=== PATIENT | male | born 1985 | race African-American/Black ===

== ENCOUNTER 2016-09-24 22:21 | Observation (INO) | payer SELFPAY ==
[~2016-09-24] VITALS: Ht 185.4 cm; Wt 67.3 kg
[2016-09-24 22:51] LABS: HEMOGLOBIN 13.6 g/dl (14.0-18.0); IMMATURE GRANULOCYTES 0.9 % (0.0-1.0); MEAN CELL VOLUME 90.7 fL CALC (80.0-100.0); MEAN CORPUSCULAR HGB 30.8 pG CALC (26.0-32.0); NEUT# 6.68 thou/uL (1.82-7.42); RED BLOOD COUNT 4.41 mill/uL (4.70-6.10)
[2016-09-24 22:55] LABS: URINE BLOOD DIPSTICK SMALL (NEGATIVE); URINE CLARITY CLEAR; URINE COLOR YELLOW; URINE GLUCOSE - DIPSTICK NEGATIVE (NEGATIVE); URINE KETONE NEGATIVE (NEGATIVE); URINE LEUK ESTERASE NEGATIVE (NEGATIVE); URINE NITRITE - DIPSTICK NEGATIVE (Negative); URINE PROTEIN - DIPSTICK 100 mg/dL (NEG-TRACE); URINE SPECIFIC GRAVITY >=1.030
[2016-09-24 22:57] LABS: URINE BILIRUBIN - DIPSTICK NEGATIVE (NEGATIVE)
[2016-09-24 22:58] LABS: BARBITURATES NEGATIVE (NEGATIVE); COCAINE NEGATIVE (NEGATIVE); METHADONE NEGATIVE (NEGATIVE); OXCYCODONE NEGATIVE (NEGATIVE); TETRAHYDROCANNABIONOL POSITIVE (NEGATIVE); TRICYLIC ANTIDEPRESSANTS NEGATIVE (NEGATIVE)
[2016-09-24 23:10] LABS: ALBUMIN 4.1 g/dL (3.2-5.0); ALKALINE PHOSPHATASE 57 u/l (38-126); ANION GAP 15 (6-22 (CALC)); BILIRUBIN, TOTAL 0.5 mg/dL (0.0-1.4); BUN 14 mg/dL (9-20); BUN/CREATININE RATIO 13 (12-20 (CALC)); CALCIUM 9.9 mg/dL (8.4-10.2); CARBON DIOXIDE 28 mmol/l (22-30); CHLORIDE 105 mmol/l (95-108); CREATININE 1.1 mg/dL (0.7-1.3); GFR > 60 ML/MIN (>=60 (CALC)); GFR FOR AFR.AMER. > 60 ML/MIN (>=60 (CALC)); GLUCOSE 106 mg/dL (75-110); SGOT/AST 34 u/l (17-59); SGPT/ALT 26 u/l (21-72); SODIUM 144 mmol/l (137-146); TOTAL PROTEIN 7.3 g/dL (6.3-8.2)
[2016-09-24 23:12] LABS: URINE BACTERIA FEW hpf; URINE MUCUS MANY hpf (NONE-FEW)
[2016-09-24 23:14] LABS: ETHYL ALCOHOL 0 mg/dl (0-30)
[2016-09-24 23:21] LABS: MYOGLOBIN 422 ng/mL (0 - 121)
[2016-09-25] VITALS (7 sets, daily range): BP systolic 103–125; BP diastolic 46–72
== END 2016-09-25 10:00 | disposition home or self-care (01) | DRG 897 ==
LOC: ENPENDDIS → ED 22:21 → ED-I 22:48 → ED 22:48 → ED-I 09-25 00:17 → ED 09-25 00:20 → ICU 09-25 00:21
PROVIDERS: ADMIT Internal Medicine; ATTEND Internal Medicine
DX: F12.959 Cannabis use, unspecified with psychotic disorder, unspecified (principal); F17.210 Nicotine dependence, cigarettes, uncomplicated

== ENCOUNTER 2016-11-28 02:13 | Emergency (ER) | payer SELFPAY ==
[~2016-11-28] VITALS: Ht 170.2 cm; Wt 59.0 kg
[2016-11-28] MEDS ORDERED: MIRALAX3350 N1 PO (02:28)
[2016-11-28 02:36] VITALS: BP 108/66
== END 2016-11-28 02:38 | disposition home or self-care (01) | DRG 392 ==
LOC: ED 02:13
DX: K59.00 Constipation, unspecified (principal); K62.5 Hemorrhage of anus and rectum; F17.210 Nicotine dependence, cigarettes, uncomplicated

== ENCOUNTER 2020-02-21 14:03 | Emergency (ER) | payer SELFPAY ==
[~2020-02-21] VITALS: Ht 170.2 cm; Wt 68.1 kg
[~2020-02-21 14:03] MED LIST: MIRALAX3350 N1 PO
[2020-02-21 15:08] LABS: URINE BILIRUBIN - DIPSTICK NEGATIVE (NEGATIVE); URINE BLOOD DIPSTICK LARGE (NEGATIVE); URINE COLOR YELLOW; URINE GLUCOSE - DIPSTICK NEGATIVE (NEGATIVE); URINE KETONE NEGATIVE (NEGATIVE); URINE PROTEIN - DIPSTICK NEGATIVE (NEG-TRACE); URINE SPECIFIC GRAVITY <=1.005; URINE UROBILINOGEN - DIPSTICK 0.2 E.U./dL (0.2)
[2020-02-21 15:10] LABS: URINE LEUK ESTERASE MODERATE (NEGATIVE); URINE NITRITE - DIPSTICK POSITIVE (Negative)
[2020-02-21 15:17] LABS: URINE WBC 20-50 WBC/hpf (0-5)
[2020-02-21] MEDS ORDERED: NITROFURANTN100 M2 PO ×2 (15:26)
[2020-02-21 16:02] VITALS: BP 110/62
== END 2020-02-21 16:07 | disposition home or self-care (01) | DRG 728 ==
LOC: ED 14:03
PROVIDERS: Family Medicine
DX: A64 Unspecified sexually transmitted disease (principal); F17.210 Nicotine dependence, cigarettes, uncomplicated

== ENCOUNTER 2020-03-06 20:38 | Emergency (ER) | payer SELFPAY ==
[~2020-03-06] VITALS: Ht 170.2 cm; Wt 73.0 kg
[~2020-03-06 20:38] MED LIST changes: +NITROFURANTN100 M2 PO
[2020-03-06] MEDS ORDERED: KEFLEX500 M1 PO ×2 (21:18)
[2020-03-06 21:30] VITALS: BP 128/72
== END 2020-03-06 21:35 | disposition home or self-care (01) | DRG 605 ==
LOC: ED 20:38
PROC: 0HQEXZZ Repair Left Lower Arm Skin, External Approach (ICD-10-PCS; principal; 2020-03-06)
DX: S51.812A Laceration without foreign body of left forearm, initial encounter (principal); F17.210 Nicotine dependence, cigarettes, uncomplicated; X99.1XXA Assault by knife, initial encounter; Y93.89 Activity, other specified; Y92.410 Unspecified street and highway as the place of occurrence of the external cause

== ENCOUNTER 2020-03-16 10:30 | Emergency (ER) | payer SELFPAY ==
[~2020-03-16] VITALS: Ht 170.2 cm; Wt 70.0 kg
[~2020-03-16 10:30] MED LIST changes: +KEFLEX500 M1 PO
[2020-03-16] MEDS ORDERED: KEFLEX500 MG PO ×3 (11:06→11:27)
[2020-03-16 11:22] VITALS: BP 122/68
== END 2020-03-16 11:29 | disposition home or self-care (01) | DRG 950 ==
LOC: ED 10:30
DX: S51.802D Unspecified open wound of left forearm, subsequent encounter (principal); X58.XXXD Exposure to other specified factors, subsequent encounter; F17.200 Nicotine dependence, unspecified, uncomplicated

== ENCOUNTER 2020-03-21 17:22 | Emergency (ER) | payer SELFPAY ==
[~2020-03-21] VITALS: Ht 170.2 cm; Wt 65.0 kg
[~2020-03-21 17:22] MED LIST changes: +KEFLEX500 MG PO
[2020-03-21 18:30] VITALS: BP 120/69
== END 2020-03-21 18:30 | disposition home or self-care (01) | DRG 950 ==
LOC: ED 17:22
DX: S51.812D Laceration without foreign body of left forearm, subsequent encounter (principal); F17.200 Nicotine dependence, unspecified, uncomplicated; X58.XXXD Exposure to other specified factors, subsequent encounter

== ENCOUNTER 2021-01-02 14:33 | Emergency (ER) | payer SELFPAY ==
[~2021-01-02] VITALS: Ht 170.2 cm; Wt 63.6 kg
[2021-01-02 16:01] LABS: HEMATOCRIT 39.4 % (39.0-50.0); HEMOGLOBIN 12.4 g/dl (14.0-18.0); MEAN CELL VOLUME 89.1 fL CALC (80.0-100.0); MEAN CORPUSCULAR HGB 28.1 pG CALC (26.0-32.0); MEAN CORPUSCULAR HGB CONC 31.5 g/dL CAL (32.0-36.0); NEUT# 4.36 thou/uL (1.82-7.42); RED BLOOD COUNT 4.42 mill/uL (4.70-6.10); RED CELL DISTRI WIDTH 16.8 % (11.5-15.5)
[2021-01-02 16:06] LABS: ALBUMIN 3.5 g/dL (3.2-5.0); ALKALINE PHOSPHATASE 50 u/l (38-126); ANION GAP 9 (6-22 (CALC)); BILIRUBIN, TOTAL 0.3 mg/dL (0.0-1.4); BUN 5 mg/dL (9-20); BUN/CREATININE RATIO 8 (12-20 (CALC)); CARBON DIOXIDE 30 mmol/l (22-30); CHLORIDE 105 mmol/l (95-108); CREATININE 0.6 mg/dL (0.7-1.3); GFR > 60 ML/MIN (>=60 (CALC)); GFR FOR AFR.AMER. > 60 ML/MIN (>=60 (CALC)); POTASSIUM 3.7 mmol/l (3.5-5.1); SGOT/AST 21 u/l (17-59); SODIUM 139 mmol/l (137-146); TOTAL PROTEIN 6.8 g/dL (6.3-8.2)
[2021-01-02 18:15] LABS: AMYLASE 40 u/l (30-110); LIPASE 76 u/l (23-300)
[2021-01-02] MEDS ORDERED: CARAFATE PO (19:33)
[2021-01-02 19:37] VITALS: BP 123/89
== END 2021-01-02 19:51 | disposition home or self-care (01) | DRG 392 ==
LOC: ED 14:33
PROVIDERS: Emergency Medicine
DX: R10.32 Left lower quadrant pain (principal); R07.9 Chest pain, unspecified; R11.2 Nausea with vomiting, unspecified; R63.4 Abnormal weight loss; F17.210 Nicotine dependence, cigarettes, uncomplicated
CPT/HCPCS: Q9967